=== PATIENT | male | born 1985 | race Caucasian/White ===

== ENCOUNTER → 2018-06-17 11:06 | Outpatient (CLI) | payer SELFPAY ==
--- NOTE | 2018-06-17 20:23 | STRESSREP ---
Stress Test Report Date: 06-17-18 Procedure: Exercise tolerance test Indications: new employment physical examination Consent: Per the patient Procedure: The patient exercised on a Dominic protocol for 10 minutes and 30 seconds completing Stage III and 1 minute and 30 seconds of Stage IV achieving a peak heart rate of 206 bpm (108 % predicted maximal heart rate) with a peak blood pressure 162/80 mmHg and a peak MET capacity of approximately 12 MET's. The baseline ECG demonstrated normal sinus rhythm. The peak exercise ECG demonstrated no obvious ECG changes. There was an isolated ventricular couplet at peak exercise . The functional capacity was considered good . The patient had no complaint of chest discomfort during exercise or recovery. The examination was discontinued secondary to dyspnea . Impression: 1. Technically adequate (percent predicted maximal heart rate greater than 85%) exercise tolerance test 2. Peak exercise ECG with no obvious ECG changes 3. There was an isolated ventricular couplet at peak exercise 4. Good functional capacity This note was generated with [employer] software. It may contain incorrect words, spelling, and punctuation that were not noted in checking the note before signing.
--- NOTE | 2018-06-17 20:26 | STRESSREP_ITS ---
Stress Test Report Date: 06-17-18 Procedure: Exercise tolerance test Indications: new employment physical examination Consent: Per the patient Procedure: The patient exercised on a Dominic protocol for 10 minutes and 30 seconds completing Stage III and 1 minute and 30 seconds of Stage IV achieving a peak heart rate of 206 bpm (108 % predicted maximal heart rate) with a peak blood pressure 162/80 mmHg and a peak MET capacity of approximately 12 MET's. The baseline ECG demonstrated normal sinus rhythm. The peak exercise ECG demonstrated no obvious ECG changes. There was an isolated ventricular couplet at peak exercise . The functional capacity was considered good . The patient had no complaint of chest discomfort during exercise or recovery. The examination was discontinued secondary to dyspnea . Impression: 1. Technically adequate (percent predicted maximal heart rate greater than 85%) exercise tolerance test 2. Peak exercise ECG with no obvious ECG changes 3. There was an isolated ventricular couplet at peak exercise 4. Good functional capacity This note was generated with [employer] software. It may contain incorrect words, spelling, and punctuation that were not noted in checking the note before signing.
== END ==
PROVIDERS: Referring Provider Emergency Medicine; Visit Provider Emergency Medicine
DX: Z02.1 Encounter for pre-employment examination (principal)